=== PATIENT | female | born 1955 | race Caucasian/White ===

== ENCOUNTER 2019-01-01 23:42 | Observation (INO) | payer OTHER ==
[2019-01-02] MEDS ORDERED: Diazepam 5 MG TAB ONE (00:07)
[2019-01-02] MEDS ORDERED: cloNIDine 0.1 MG TAB ONE (00:07)
[2019-01-02 00:39] LABS: Troponin I 0.068 ng/mL (< 0.028)
[2019-01-02] MEDS ORDERED: Nitroglycerin 2% Ointment 1 INCH/1 GM Packet ONE (01:11)
[2019-01-02] MEDS ORDERED: Morphine 2 MG/ML SYRINGE ONE (02:14)
[2019-01-02 04:06] VITALS: BMI 32.7
[2019-01-02 05:17] LABS: CKMB 1.6 ng/mL (0-6.6)
[2019-01-02] MEDS ORDERED: Cyclobenzaprine 10 MG TAB PO PRN (05:17)
[2019-01-02] MEDS ORDERED: Benzonatate 100 MG CAP PO PRN (07:15)
[2019-01-02] MEDS ORDERED: hydrOXYzine 25 MG TAB PO PRN (07:15)
[2019-01-02] MEDS ORDERED: hydrALAZINE 20 MG/ML VIAL SLOW IVP PRN (07:21)
[2019-01-02] MEDS ORDERED: cloNIDine 0.1 MG TAB PO PRN (07:21)
[2019-01-02] MEDS: Sodium Chloride 0.9% 1,000 ML IV SCH ×2 (08:15→23:31)
[2019-01-02] MEDS: Carvedilol 3.125 MG TAB PO SCH ×2 (08:16→17:47)
[2019-01-02] MEDS: Aspirin 325 MG TAB PO SCH (08:16)
[2019-01-02] MEDS: Fluticasone Propionate Nasal Spray 16 gm Bottle FS SCH (08:17)
[2019-01-02] MEDS ORDERED: Polyethylene Glycol 3350 17 GM Packet PO PRN (09:00)
[2019-01-02] MEDS ORDERED: Lisinopril 10 MG TAB PO SCH (09:00)
[2019-01-02 09:21] LABS: CKMB 1.8 ng/mL (0-6.6)
[2019-01-02 09:26] LABS: Anion Gap 12 mmol/L (10-20); BUN (Urea Nitrogen) 17 mg/dL (9.8-20.1); Calc. Creatinine Clearance 73 mL/min (70-130); Calcium 9.1 mg/dL (7.8-10.44); Carbon Dioxide 25 mmol/L (23-31); Cardiac Risk 5.7 (Less than 4.5); Chloride 109 mmol/L (98-107); Cholesterol 198 mg/dl (< 200 Desired); Estimated GFR-MDRD 51; Glucose 95 mg/dL (80-115); HDL Cholesterol 35 mg/dL (>60 Neg Risk); LDL Cholesterol, Calculated 90 mg/dL; Sodium 142 mmol/L (136-145); Triglycerides 364 mg/dL (Less than 150)
[2019-01-02] MEDS: Enoxaparin Sodium 40 MG/0.4 ML SYRINGE SC SCH (09:52)
[2019-01-02] MEDS ORDERED: Ketorolac Tromethamine 30 MG/ML VIAL IVP PRN (09:55)
[2019-01-02] MEDS ORDERED: traMADol HCl 50 MG TAB PO PRN (09:56)
[2019-01-02] MEDS ORDERED: Cyclobenzaprine 10 MG TAB PO SCH (10:00)
[2019-01-02] MEDS ORDERED: Regadenoson 0.4 MG/5 ML SYRINGE ONE (10:12)
--- NOTE | 2019-01-02 12:42 | HP ---
PRIMARY CARE PHYSICIAN: Veronica Menchaca[facility] CHIEF COMPLAINT: Chest pain and back pain and back spasm. HISTORY OF PRESENTING ILLNESS: Ms. Berry is a 63-year-old female with past medical history of gastroesophageal reflux disease, as well as history of hypertension and history of hepatitis C, status post treatment, who presented to outside emergency room in [place] with above-mentioned complaint. History was mainly obtained from the patient herself and electronic medical records have been reviewed. Ms. Berry reports that she has had similar symptoms about 2 weeks ago and other times in the past. Her symptoms consist of sudden onset of chest tightness, which goes to her back and she has been having severe back spasms. She required multiple pain medications to help with these symptoms. She recently stopped taking her Protonix 1 week ago and was started on a Medrol Dosepak three days ago by her primary care physician. She was also told by her PCP to stop her lisinopril. She reports the pain to be localized most severe in the substernal area and in the spine and the right shoulder blade. She describes it as dull in nature with spasmodic back pain. The symptoms started yesterday afternoon and are associated with some cough, diaphoresis, and shortness of breath. Upon presentation to the emergency room, she was severely hypertensive with a blood pressure of 196/114, otherwise stable vital signs. Her workup included a negative D-dimer and her cardiac enzymes were in the indeterminate range. Her initial troponin was less than 0.010 which bumped up to 0.068 and the maximum was 0.104, and it has started to trend down again. Rest of her workup show mild acute renal insufficiency with a creatinine of 1.24. Her chest x-ray was unremarkable as well as 12-lead EKG for any evidence of ACS. She was transferred to our facility for further workup after being treated with morphine, transdermal nitroglycerin, Valium, and clonidine at the outside ER. In our emergency room, her blood pressure was 169/73 upon presentation. She is now being admitted to Medicine Service for chest pain workup and elevated troponin as well as uncontrolled hypertension. PAST MEDICAL HISTORY: 1. History of hepatitis C, status post treatment. 2. Hypertension. 3. Gastroesophageal reflux disease. PAST SURGICAL HISTORY: Cataract removal. SOCIAL HISTORY: She has no recent history of tobacco abuse, alcohol abuse, or drug abuse. FAMILY HISTORY: Significant family history of massive heart attack in her father in his 50s, also has had strokes. ALLERGIES: AZITHROMYCIN. HOME MEDICATIONS: 1. Lisinopril 10 mg daily. 2. Protonix 40 mg daily. 3. Lamotrigine 100 mg daily. 4. Benzonatate as needed. 5. Cetirizine as needed. 6. Hydroxyzine as needed. 7. Vitamin D3 daily. 8. Mucinex p.r.n. 9. Tylenol p.r.n. REVIEW OF SYSTEMS: A 12-point review of system is done and is negative except for those mentioned in the history and physical. LABORATORY DATA: Her CBC shows WBC is 13.2 with a hemoglobin of 11.1, 64% neutrophils. D-dimer within normal range. Serum chemistries show creatinine improved to 1.08. Lactic acid is normal. Liver enzymes normal. Cardiac enzymes show troponin most recent of 0.075, down from 0.104. Chest x-ray by my review shows no evidence of pleural effusion, edema, or infiltrate. A 12-lead EKG by my review shows normal sinus rhythm without any evidence of acute ST or T-wave changes. PHYSICAL EXAMINATION: VITAL SIGNS: Most recent vital signs; temperature 98.7, pulse of 70, respirations are 18, saturating 95% on room air, and blood pressure 120/70. GENERAL: She is uncomfortable and has been exhibiting symptoms suggestive of back spasm during my interview. She is otherwise awake, alert, and oriented x3. HEENT: Mucous membrane is moist and pink. No oropharyngeal exudate or erythema. Head is normocephalic and atraumatic. Pupils are equal and reactive to light and accommodation. Extraocular movement intact. NECK: Supple without any lymphadenopathy, JVD, or bruit. CHEST: Clear to auscultation without any wheezing, rales, or rhonchi. HEART: Rate and rhythm are regular without any murmurs, rubs, or gallops. ABDOMEN: Soft, nontender, and nondistended with positive bowel sounds. EXTREMITIES: Free of any cyanosis, clubbing, or edema. NEUROLOGIC: Examination is nonfocal. SKIN: Free of any rashes or bruises. Feels warm and dry to touch. PSYCHIATRIC: Normal affect. IMPRESSION AND PLAN: 1. Chest pain with back spasms. The patient does have some risk factors at baseline. We will admit her to telemetry and observation status and perform a transthoracic echocardiogram. Her troponins are trending down. We will start her on aspirin and beta blockers and put her on a transdermal nitroglycerin for blood pressure control. We will go ahead and order a stress test. If the stress test is abnormal, we will request Cardiology consultation for further risk stratification. She is currently hemodynamically stable. We will also start her back on Protonix as her symptoms can be secondary to uncontrolled reflux. Also, check a lipid panel and start her on statins as indicated. 2. Back spasms. We will start her on muscle relaxants and p.r.n. pain medications, but avoid narcotics. 3. Acute renal insufficiency. The patient will be started on IV fluids and monitored closely with repeat check tomorrow morning if the patient stays in-house. We will hold lisinopril for now. 4. History of hepatitis C, status post treatment. 5. Deep venous thrombosis and gastrointestinal prophylaxis. DISPOSITION: Ms. Berry is currently being admitted to the hospital for chest pain workup and ACS rule out. Further management will depend upon her clinical course. She is currently on observation status. Job ID: [id number]
[2019-01-02] MEDS: Cyclobenzaprine 10 MG TAB PO SCH ×2 (14:12→22:00)
[2019-01-02] MEDS: Nitroglycerin 2% Ointment 1 INCH/1 GM Packet TOP SCH ×2 (14:12→22:00)
[2019-01-02] MEDS: HYDROcodone/Acetaminophen 5/325 mg Tablet PO PRN ×2 (17:47→23:27)
--- NOTE | 2019-01-02 18:14 | NM ---
CARDIAC SPECT: 01/02/19 HISTORY: 63-year-old female with chest pain and hypertension. TECHNIQUE: A stress only myocardial perfusion scan was performed following the intravenous administration of 28 millicuries technetium 99m Sestamibi. Pharmacologic stress with Lexiscan was monitored and interprete d by Tracy Mack, nurse practitioner. FINDINGS: Homogeneous tracer distribution is seen in the myocardial segments on the post stress images. GATED SPECT LVEF: 72%. WALL MOTION EXAM: Normal. IMPRESSION: Normal post stress myocardial perfusion scan. POS: KATELYN
[2019-01-02] MEDS ORDERED: Atorvastatin Calcium 20 MG TAB PO SCH (21:00)
[2019-01-03] MEDS: Cyclobenzaprine 10 MG TAB PO SCH (05:37)
[2019-01-03] MEDS: Nitroglycerin 2% Ointment 1 INCH/1 GM Packet TOP SCH (05:38)
[2019-01-03 07:53] VITALS: BP 143/88; TEMP 97.4
[2019-01-03] MEDS: Fluticasone Propionate Nasal Spray 16 gm Bottle FS SCH (08:47)
[2019-01-03] MEDS: Carvedilol 3.125 MG TAB PO SCH (08:47)
[2019-01-03] MEDS: Aspirin 325 MG TAB PO SCH (08:47)
[2019-01-03] MEDS: Enoxaparin Sodium 40 MG/0.4 ML SYRINGE SC SCH (08:47)
[2019-01-03] MEDS: HYDROcodone/Acetaminophen 5/325 mg Tablet PO PRN (09:39)
--- NOTE | 2019-01-03 15:35 | DIS ---
DATE OF ADMISSION: 01/02/2019 DATE OF DISCHARGE: 01/03/2019 CONDITION: At the time of discharge, stable and improved. DISCHARGE DIAGNOSES: 1. Back spasm. 2. Uncontrolled hypertension. 3. Elevated cardiac enzymes, likely demand ischemia. 4. Acute renal insufficiency. 5. History of hepatitis C status post treatment. 6. Hypertriglyceridemia. DISCHARGE MEDICATIONS: 1. Protonix 40 mg daily. 2. Flonase daily. 3. Lisinopril 10 mg daily. New medications, 1. Lopid 600 mg p.o. b.i.d. 2. Aspirin 81 mg daily. PRIMARY CARE PHYSICIAN: Dr. Yari Burgess. PROCEDURES DONE IN HOSPITAL: Include nuclear medicine stress test, which is negative for any evidence of ischemia or infarction. The ejection fraction on the stress test is recorded at 72%. HISTORY OF PRESENTING ILLNESS: Ms. Berry is a 63-year-old female with past medical history of hypertension and significant family history of coronary artery disease, who presented to the emergency room with complaints of sharp chest pain associated with back spasms. She was hypertensive upon presentation to outside emergency room with elevated cardiac enzymes with a troponin initially of 0.010 and then 0.068. She was given aspirin and was transferred to our facility for ACS workup. Please see admission history and physical for further details. HOSPITAL COURSE: Ms. Berry required multiple narcotics and eventually muscle relaxant that helped with her back spasms. Her cardiac enzymes were trended and they trended downward. Blood pressure was stabilized as well. She underwent a nuclear medicine cardiac stress test, which was unremarkable. Her lipid panel was checked, showed high triglycerides of 364. She was started on gemfibrozil for this and was advised to start on a healthy lifestyle with diet and exercise program. Total cholesterol was 198, LDL 90, and HDL 35. As of this morning, she is feeling much better. She will be discharged home with a prescription of Flexeril as needed and lidocaine patch. She is instructed to follow up with her primary care physician in the outpatient setting. PHYSICAL EXAMINATION: This morning, VITAL SIGNS: Temperature 97.4, heart rate 73, respirations 18, saturating 96% on room air, blood pressure 143/88. She is instructed to resume her lisinopril for this. GENERAL: No acute distress. CHEST: Clear to auscultation. No wheezing, rales, or rhonchi. Job ID: [id number]
--- NOTE | 2019-01-04 08:36 | STRESS ---
Acquisition Time: 2019-01-02 15:33:07 Total Exercise Time: 00:01:00 Test Indications: CHEST PAIN Medications: Protocol: LEXISCAN Max HR: 105 BPM 66% of Pred: 157 BPM Max BP: 130/062 mmHG Max Work Load: 1.0 METS RESTING ECG: NORMAL SINUS RHYTHM AT 68 BPM SYMPTOMS: NONE NORMAL BP RESPONSE ECTOPY: NONE ECG STRESS: NO SIGNIFICANT CHANGES INTERPRETATION: NEGATIVE ECG/AWAIT NUCLEAR IMAGES FOR DEFINITIVE DIAGNOSIS Confirmed by RANDOLPH MALIN ([id number]) on 01/04/2019 8:36:02 AM Referred By: MD Beata WINKLER Confirmed By:RANDOLPH MALIN
== END 2019-01-03 11:25 | disposition home or self-care (01) ==
LOC: ERS 23:42 → 2SE 01-02 00:56
PROVIDERS: ADMIT Hospitalist; ATTEND Hospitalist
DX: M62.830 Muscle spasm of back (principal); I10 Essential (primary) hypertension; N28.9 Disorder of kidney and ureter, unspecified; E78.1 Pure hyperglyceridemia; K21.9 Gastro-esophageal reflux disease without esophagitis; B19.20 Unspecified viral hepatitis C without hepatic coma; Z88.1 Allergy status to other antibiotic agents; Z79.82 Long term (current) use of aspirin; Z79.51 Long term (current) use of inhaled steroids; Z79.899 Other long term (current) drug therapy; Z98.890 Other specified postprocedural states
CPT/HCPCS: 36415; 78452; 80048; 80061; 82553; 84484; 93005; 93017; 96361; 96372; 96374; A9500; G0378; J1650; J1885; J2270; J2785